=== PATIENT | male | born 1945 | race Caucasian/White ===

== ENCOUNTER → 2017-05-28 | Outpatient (CLI) | payer OTHER ==
--- NOTE | 2017-05-28 12:42 | PCVCIMAG ---
APPROVED REPORT Exam: Stress Echocardiogram Indication: CAD s/p CABG, Parox A Fib Stress Nurse: Richelle Mcduffie RN Status: routine HR: 47 bpm Rhythm: Sinus Bradycardia Medical History Cardiac Risk Factors: FHX of CAD Procedure The patient underwent an Exercise Stress Test using the Ta Protocol. Blood pressure, heart rate, and EKG were monitored. An Echocardiogram was performed by insulator technician in four stages in quad fashion. At peak stress, four selected images were obtained and placed side by side with resting images for comparison. Stress Test Details Stress Test: Exercise stress testing was performed using a At protocol. HR Resting HR: 47 bpmMax Heart Rate (APMHR): 150 bpm Max HR Achieved: 141 bpmTarget HR (85% APMHR): 127 bpm % of APMHR: 94 Recovery HR: 71 bpm HR response to stress: Normal HR response to stress BP Resting BP: 120/82 mmHg Max BP: 164/60 mmHg Recovery BP: 140/60 mmHg ECG Resting ECG: Sinus Bradycardia Stress ECG: Sinus Rhythm ST Change: Normal Maximum ST Deviation: 0 mm Arrhythmia: None Recovery ECG: Sinus Rhythm Recovery ST Deviation: 0 mm Recovery Arrhythmia: PVCs that quickly resolved during recovery Clinical Reason for Termination: Maximal effort Stress Symptoms: Dyspnea Exercise duration: 10 min sec Highest Stage Achieved: Stage 4: 4.2 mph at 16% grade. Exercise capacity: 13.4 METs Overall Exercise Capacity for Age: Good Angina Score: None Symptoms resolved with caffeine. Stress ECG Conclusion Clinical: Non-ischemic ECG: Non-ischemic Hutton Treadmill Score is 10.0 which is Low risk. Pre-Stress Echo The resting Echocardiogram showed normal left ventricular contractility with an estimated Ejection Fraction of about >55%. Normal wall motion in all segments on baseline images. Post-Stress Echo The stress Echocardiogram showed normal left ventricular contractility with an estimated Ejection Fraction of about 60-65%. Normal augmentation of wall motion in all segments on post stress images. Clinical Normal augmentation of myocardial wall segments using a 17 segment model. No clinical or ECG evidence for ischemia. Conclusion Clinical Response: Non-ischemic Stress ECG Response: Non-ischemic Stress Echo Images: Non-ischemic Other Information Study Quality: Adequate
== END | disposition home or self-care (01) ==
LOC: PCVCIMAG 11:20
PROVIDERS: ATTEND Internal Medicine
DX: I48.0 Paroxysmal atrial fibrillation (principal); I25.10 Atherosclerotic heart disease of native coronary artery without angina pectoris; E78.5 Hyperlipidemia, unspecified; R00.1 Bradycardia, unspecified; Z95.1 Presence of aortocoronary bypass graft; Z79.82 Long term (current) use of aspirin
CPT/HCPCS: 93325; 93351